=== PATIENT | female | born 1965 | race Caucasian/White ===

== ENCOUNTER 2022-01-09 13:52 | Outpatient (CLI) | payer BC | END 2022-01-09 13:53 | disposition home or self-care (01) | LOC: TBSIIMAG 13:52 | PROVIDERS: ATTEND Internal Medicine | DX: M25.562 Pain in left knee (principal); M25.462 Effusion, left knee; S83.242D Other tear of medial meniscus, current injury, left knee, subsequent encounter; M71.22 Synovial cyst of popliteal space [Baker], left knee; R60.0 Localized edema ==

== ENCOUNTER 2023-08-24 16:00 | Outpatient (CLI) | payer BC | END 2023-08-24 16:01 | disposition home or self-care (01) | LOC: SLEEPLAB 16:00 | PROVIDERS: ATTEND Internal Medicine | DX: G47.33 Obstructive sleep apnea (adult) (pediatric) (principal); R53.83 Other fatigue; R06.83 Snoring; E66.9 Obesity, unspecified; G47.10 Hypersomnia, unspecified; G47.00 Insomnia, unspecified; F41.9 Anxiety disorder, unspecified; Z68.42 Body mass index [BMI] 45.0-49.9, adult | CPT/HCPCS: 95810 ==

== ENCOUNTER 2025-03-26 08:17 | Outpatient (CLI) | payer BC | END 2025-03-26 08:18 | disposition home or self-care (01) | LOC: BICMAMMO 08:17 | PROVIDERS: ATTEND Obstetrics & Gynecology | DX: Z13.820 Encounter for screening for osteoporosis (principal) | CPT/HCPCS: 77080 ==